=== PATIENT | female | born 1935 | race African-American/Black ===

== ENCOUNTER 2024-07-27 17:36 | Inpatient (IN) | payer OTHER ==
[~2024-07-27] VITALS: Ht 152.4 cm; Wt 67.1 kg
[~2024-07-27 17:36] MED LIST: ALBU6.7H3; AMLO10TA80 PO; ATEN-42 PO; ATOR-2 PO; DOXA2TAB2 PO; INSU100I28 SUBCUT; LEVO-65 MT; LOSA100T33 PO; METF-415 PO
[2024-07-27 18:38] LABS: HEMATOCRIT. 40.3 % (36.0-48.0); HEMOGLOBIN. 13.1 g/dL (12.0-16.0); LYMPHOCYTES % 47.9 % (20.0-50.0); MEAN CORPUSCULAR HGB CONC 32.6 g/dL (31.0-37.0); MEAN CORPUSCULAR VOLUME 89.2 fL (81.0-99.0); MEAN PLATELET VOLUME 7.8 fl (7.4-10.4); MONOCYTES % 7.9 % (2.0-8.0); NEUTROPHILS % 41.2 % (40.0-76.0); PLATELET 281 x1000/uL (130-400); RED BLOOD CELL COUNT 4.53 mill/uL (4.2-5.4); RED CELL DISTRIBUTION WIDTH 15.2 % (11.6-14.6); WHITE BLOOD COUNT 9.6 x1000/uL (4.5-11.0)
[2024-07-27 18:41] LABS: CHLORIDE 107 mEq/L (98-107); POTASSIUM 3.9 mEq/L (3.5-5.1); SODIUM 143 mEq/L (136-145)
[2024-07-27 18:42] LABS: CARBON DIOXIDE 24 mEq/L (21-32)
[2024-07-27 18:43] LABS: CALCIUM 10.5 mg/dL (8.7-10.4)
[2024-07-27 18:47] LABS: CREATININE 0.9 mg/dL (0.6-1.0); GLUCOSE 115 mg/dL (70-105)
[2024-07-27 18:48] LABS: TROPONIN I HIGH SENSITIVITY 12 ng/L (3.0-34); UREA NITROGEN BLOOD 12 mg/dL (9-23)
[2024-07-27] MEDS ORDERED: DILTIAZEM HCL 125 MG in DEXT 5% WATER 100 ML IV ONE (20:30)
[2024-07-27] MEDS ORDERED: DILTIAZEM HCL 5MG/ML 5ML VIAL IV ONE (20:30)
[2024-07-27] MEDS: DILTIAZEM HCL 5MG/ML 5ML VIAL IV NR (21:42)
[2024-07-27 22:30] VITALS: BP 143/74; PULSE 70; RESP 18; TEMP 36.6; O2SAT 98
[2024-07-27] MEDS: DILTIAZEM HCL 125 MG in DEXT 5% WATER 100 ML IV NR (23:08)
[2024-07-27 23:09] VITALS: BP 143/74; PULSE 70; RESP 18; TEMP 36.6
[2024-07-27] MEDS ORDERED: DEXTROSE 50% WATER 50ML SYRINGE IV PRN ×2 (23:15→23:45)
[2024-07-27] MEDS ORDERED: GUAIFENESIN 200MG/10ML SUGAR FREE UDC PO PRN (23:45)
[2024-07-27] MEDS ORDERED: MAGNESIUM/ALUMINUM HYDROXIDE/SIMETHICONE 30ML UDC PO PRN (23:45)
[2024-07-27] MEDS ORDERED: IPRATROPIUM/ALBUTEROL 0.5-3(2.5)MG/3ML NEB HHN PRN (23:45)
[2024-07-27] MEDS ORDERED: CLONIDINE 0.1MG TABLET PO PRN (23:45)
[2024-07-27] MEDS ORDERED: ACETAMINOPHEN 325MG TABLET PO PRN (23:45)
[2024-07-27] MEDS ORDERED: DOCUSATE SODIUM 100MG CAPSULE PO PRN (23:45)
[2024-07-27] MEDS ORDERED: ONDANSETRON HCL 4MG/2ML INJ IV PRN (23:45)
[2024-07-28] VITALS (12 sets, daily range): BP systolic 124–164; BP diastolic 54–89; PULSE 56–66; RESP 14–30; TEMP 36.3–36.9; O2SAT 94–100
[2024-07-28] MEDS: ENOXAPARIN 80MG/0.8ML SYR SUBCUT SCH (00:09)
[2024-07-28] MEDS: MELATONIN 3MG TABLET PO NR (00:10)
[2024-07-28 06:54] LABS: CARBON DIOXIDE 25 mEq/L (21-32); CHLORIDE 109 mEq/L (98-107); POTASSIUM 4.3 mEq/L (3.5-5.1); SODIUM 142 mEq/L (136-145)
[2024-07-28 06:55] LABS: TROPONIN I HIGH SENSITIVITY 16 ng/L (3.0-34)
[2024-07-28 06:56] LABS: CALCIUM 10.1 mg/dL (8.7-10.4)
[2024-07-28 06:59] LABS: THYROID STIMULATING HORMONE 1.18 uIU/mL (0.55-4.78)
[2024-07-28 07:00] LABS: CREATINE KINASE 37 IU/L (34-145); GLUCOSE 99 mg/dL (70-105); TRIGLYCERIDE 95 mg/dL (0-150); UREA NITROGEN BLOOD 15 mg/dL (9-23)
[2024-07-28 07:01] LABS: LDL CHOLESTEROL 74 mg/dL (5-100)
[2024-07-28 07:02] LABS: CHOLESTEROL 138 mg/dL (<200); HDL CHOLESTEROL 43 mg/dL (>65)
[2024-07-28 07:06] LABS: PARTIAL THROMBOPLASTIN TIME 30.2 sec (23.4-31.0); PROTHROMBIN TIME 10.6 sec (9.6-11.0)
[2024-07-28 07:10] LABS: BASOPHILS % 0.6 % (0.0-2.0); EOSINOPHILS % 2.3 % (0.0-5.0); HEMATOCRIT. 37.7 % (36.0-48.0); HEMOGLOBIN. 12.2 g/dL (12.0-16.0); LYMPHOCYTES % 30.8 % (20.0-50.0); MEAN CORPUSCULAR HEMOGLOBIN 28.7 pg (28.0-32.0); MEAN CORPUSCULAR HGB CONC 32.3 g/dL (31.0-37.0); MEAN CORPUSCULAR VOLUME 88.9 fL (81.0-99.0); MEAN PLATELET VOLUME 7.9 fl (7.4-10.4); MONOCYTES % 9.5 % (2.0-8.0); NEUTROPHILS % 56.8 % (40.0-76.0); PLATELET 263 x1000/uL (130-400); RED BLOOD CELL COUNT 4.25 mill/uL (4.2-5.4); RED CELL DISTRIBUTION WIDTH 15.2 % (11.6-14.6); WHITE BLOOD COUNT 7.9 x1000/uL (4.5-11.0)
[2024-07-28] MEDS: INSULIN LISPRO 100 UNITS/ML SUBCUT SCH (08:20)
[2024-07-28] MEDS ORDERED: INSULIN LISPRO 100 UNITS/ML SUBCUT SCH (08:20)
[2024-07-28] MEDS: BLOOD SUGAR DIAGNOSTIC STRIP TEST SCH (09:19)
[2024-07-28] MEDS: MULTIVITAMINS,THER W-MINERALS TABLET PO SCH (09:19)
[2024-07-28] MEDS: PANTOPRAZOLE SODIUM 40 MG/VIAL IV SCH (09:19)
[2024-07-28] MEDS: AMLODIPINE 5MG TABLET PO SCH (09:19)
[2024-07-28] MEDS: ATENOLOL 25MG TABLET PO SCH (09:20)
[2024-07-28] MEDS: INSULIN GLARGINE 100 UNITS/ML SUBCUT SCH (10:25)
[2024-07-28] MEDS: HYDRALAZINE 20MG/ML VIAL IV PRN (14:26)
[2024-07-28] MEDS: MAGNESIUM 2 G PREMIX 50 ML IV NR (14:27)
[2024-07-28 16:04] LABS: TROPONIN I HIGH SENSITIVITY 16 ng/L (3.0-34)
[2024-07-28 16:05] LABS: CREATINE KINASE 36 IU/L (34-145)
[2024-07-28 16:09] LABS: T4 FREE 1.03 ng/dL (0.89-1.76)
[2024-07-28] MEDS: LOSARTAN 50 MG TABLET PO SCH (20:40)
[2024-07-28] MEDS: ATORVASTATIN CALCIUM 40MG TABLET PO SCH (20:41)
[2024-07-28] MEDS: MELATONIN 3MG TABLET PO PRN (21:02)
[2024-07-29] VITALS (10 sets, daily range): BP systolic 124–173; BP diastolic 55–83; PULSE 55–68; RESP 18–36; TEMP 36.5–36.7; O2SAT 92–99
[2024-07-29 00:15] LABS: TROPONIN I HIGH SENSITIVITY 16 ng/L (3.0-34)
[2024-07-29 00:16] LABS: CREATINE KINASE 39 IU/L (34-145)
[2024-07-29 08:31] LABS: BASOPHILS % 0.8 % (0.0-2.0); EOSINOPHILS % 3.9 % (0.0-5.0); HEMATOCRIT. 37.8 % (36.0-48.0); HEMOGLOBIN. 12.4 g/dL (12.0-16.0); LYMPHOCYTES % 36.7 % (20.0-50.0); MEAN CORPUSCULAR HEMOGLOBIN 28.9 pg (28.0-32.0); MEAN CORPUSCULAR HGB CONC 32.8 g/dL (31.0-37.0); MEAN CORPUSCULAR VOLUME 88.3 fL (81.0-99.0); MEAN PLATELET VOLUME 8.2 fl (7.4-10.4); MONOCYTES % 8.8 % (2.0-8.0); NEUTROPHILS % 49.8 % (40.0-76.0); PLATELET 229 x1000/uL (130-400); RED BLOOD CELL COUNT 4.28 mill/uL (4.2-5.4); RED CELL DISTRIBUTION WIDTH 15.4 % (11.6-14.6); WHITE BLOOD COUNT 7.4 x1000/uL (4.5-11.0)
[2024-07-29] MEDS: ENOXAPARIN 40MG/0.4ML SYR SUBCUT SCH (09:24)
[2024-07-29] MEDS: ACETAMINOPHEN 325MG TABLET PO PRN (09:28)
[2024-07-29 09:40] LABS: CHLORIDE 108 mEq/L (98-107); POTASSIUM 4.2 mEq/L (3.5-5.1); SODIUM 140 mEq/L (136-145)
[2024-07-29 09:41] LABS: CALCIUM 9.8 mg/dL (8.7-10.4); CARBON DIOXIDE 25 mEq/L (21-32)
[2024-07-29 09:46] LABS: CREATININE 0.8 mg/dL (0.6-1.0); GLUCOSE 87 mg/dL (70-105); UREA NITROGEN BLOOD 16 mg/dL (9-23)
[2024-07-29 09:48] LABS: PHOSPHORUS 3.2 mg/dL (2.5-4.9)
[2024-07-29] MEDS ORDERED: LOSA50TA41 PO ×2 (12:10→12:33)
[2024-07-29] MEDS ORDERED: AMLO10TA80 PO (12:33)
[2024-07-29] MEDS ORDERED: ATEN-42 PO (12:33)
[2024-07-29] MEDS ORDERED: METF-415 PO (12:33)
[2024-07-29] MEDS ORDERED: ATOR-2 PO (12:33)
[2024-07-30] MEDS ORDERED: FAMOTIDINE 20MG/2ML VIAL IV SCH (09:00)
== END 2024-07-29 18:56 | disposition home or self-care (01) | DRG 201 ==
LOC: ER 17:36 → EDBEDREQSVC 21:39 → EDBEDREQ 21:39 → EDBEDREQTM 21:39 → 5EST 23:00
PROVIDERS: ADMIT Internal Medicine; ATTEND Internal Medicine
DX: I49.3 Ventricular premature depolarization (principal); Z95.1 Presence of aortocoronary bypass graft; E11.9 Type 2 diabetes mellitus without complications; I48.91 Unspecified atrial fibrillation; E78.5 Hyperlipidemia, unspecified; I25.10 Atherosclerotic heart disease of native coronary artery without angina pectoris; I10 Essential (primary) hypertension; E66.9 Obesity, unspecified; M06.8A Other specified rheumatoid arthritis, other specified site; Z95.5 Presence of coronary angioplasty implant and graft; Z79.4 Long term (current) use of insulin; Z79.84 Long term (current) use of oral hypoglycemic drugs; Z79.899 Other long term (current) drug therapy; Z86.73 Personal history of transient ischemic attack (TIA), and cerebral infarction without residual deficits; Z68.28 Body mass index [BMI] 28.0-28.9, adult
CPT/HCPCS: 36415; 71045; 80048; 80061; 82550; 82962; 83036; 83735; 84100; 84439; 84443; 84481; 84484; 85025; 93005; 93306; 99285; A4606; J0360; J1650; J1815; J2470; J3475; J3490; J7060